=== PATIENT | female | born 1950 | race Caucasian/White ===

== ENCOUNTER 2016-08-23 06:11 | Day surgery (SDC) | payer OTHER ==
--- NOTE | ~2016-08-23 | EGD ---
EGD REPORT [facility] [address] [place] [id number] NAME: MIKALA BERTRAND : 54 STATUS : REG [facility] [place] PAT#: [id number] AGE: 66 ADM/REG DATE : 08/23/16 MR#: [id number] REPORT SERV DATE: 08/23/16 DICTATED BY: ASAEL FERREIRA DATE: 08/23/16 REPORT STATUS : Draft TRANSCRIBED BY: [facility] DATE: 08/23/16 Endoscopy Center Patient Name: Mikala Bertrand Date of : 1950 Attending MD: ASAEL FERREIRA MD Procedure Date No Time: 08/23/2016 Procedure: Upper GI endoscopy Indications: Epigastric abdominal pain, Eructation, Regurgitation, Frequent throat clearing Referring MD: KAROL ACOSTA MD, FAIZA HUBBARD III, MD Medicines: Propofol per Anesthesia Complications: No immediate complications. Estimated blood loss: None. Procedure: Pre-Anesthesia Assessment: - After reviewing the risks and benefits, the patient was deemed in satisfactory condition to undergo the procedure. - Prior to the procedure, a History and Physical was performed, and patient medications and allergies were reviewed. The patient's tolerance of previous anesthesia was also reviewed. The risks and benefits of the procedure and the sedation options and risks were discussed with the patient. All questions were answered, and informed consent was obtained. Prior Anticoagulants: The patient has taken no previous anticoagulant or antiplatelet agents. ASA Grade Assessment: II - A patient with mild systemic disease. After reviewing the risks and benefits, the patient was deemed in satisfactory condition to undergo the procedure. After obtaining informed consent, the endoscope was passed under direct vision. Throughout the procedure, the patient's blood pressure, pulse, and oxygen saturations were monitored continuously. The GIF [id number] was introduced through the mouth, and advanced to the jejunum. The upper GI endoscopy was accomplished without difficulty. The patient tolerated the procedure well. Findings: Diffuse mild erythema was found in the lower third of the esophagus. Biopsies were taken with a cold forceps for histology. Estimated blood loss: none. A non-obstructing Schatzki ring (acquired) was found at the gastroesophageal junction. The entire examined stomach and gastroesophageal junction (on retroflexion) were normal. EGD REPORT [address] [address] NAME: MIKALA BERTRAND : [birth year] STATUS : REG [facility] [place] PAT#: [id number] AGE: 66 ADM/REG DATE : 08/23/16 MR#: [id number] REPORT SERV DATE: 08/23/16 DICTATED BY: ASAEL FERREIRA DATE: 08/23/16 REPORT STATUS : Draft TRANSCRIBED BY: [employer] DATE: 08/23/16 The examined duodenum was normal. Biopsies were taken with a cold forceps for histology. Estimated blood loss: none. Impression: - Erythema in the lower third of the esophagus. Biopsied. - Non-obstructing Schatzki ring. - Normal stomach and gastroesophageal junction. - Normal examined duodenum. Biopsied. - Non-erosive esophageal reflux (NERD) disease present. - IBS-C. - Ventral hernia. Recommendation: - Discharge patient to home (ambulatory). - Decrease excess weight. - Return to previous diet. - Avoid eating within 4 hours of bedtime. - Continue present medications. - Increase Prilosec (omeprazole) to 40 mg twice daily before breakfast and supper for 1 month then decrease to once daily before meal. - Will consider trial of Carafate if no improvement. - Await pathology results. - Arrange F/U with Dr. Hubbard regarding ventral hernia. - Patient has a contact number available for emergencies. The signs and symptoms of potential delayed complications were discussed with the patient. Return to normal activities tomorrow. Written discharge instructions were provided to the patient. Procedure Code(s): --- Professional --- 20762, Esophagogastroduodenoscopy, flexible, transoral; with biopsy, single or multiple Diagnosis Code(s): --- Professional --- K22.9, Disease of esophagus, unspecified K22.2, Esophageal obstruction K21.9, Gastro-esophageal reflux disease without esophagitis R10.13, Epigastric pain R14.2, Eructation R11.10, Vomiting, unspecified CPT copyright 2013 [employer] [place] [employer]. All rights reserved. The codes documented in this report are preliminary and upon telegraph plant maintainer review may be revised to meet current compliance requirements. EGD REPORT [facility] [address] [place] [id number] NAME: MIKALA BERTRAND : [birth year] STATUS : REG [facility] [place] PAT#: [id number] AGE: 66 ADM/REG DATE : 08/23/16 MR#: [id number] REPORT SERV DATE: 08/23/16 DICTATED BY: ASAEL FERREIRA. DATE: 08/23/16 REPORT STATUS : Draft TRANSCRIBED BY: [employer] DATE: 08/23/16 ASAEL FERREIRA MD 08/23/2016 7:53 AM This report has been signed electronically. Number of Addenda: 0 Note Initiated On: 08/23/2016 7:32 AM Scope Withdrawal Time 0 hours 0 minutes 0 seconds [address] [id number]
[~2016-08-23 06:11] MED LIST: ACTIVELLA; ACTIVELLA PO; ADVAIR250 INH; ANOROELLIPTA INH; ASAB PO; ASACOL PO; ASAEC PO; BUPROPION; C5 PO; CALTRA600D PO; CENTRUM PO; CENTRUM TAB1 TAB PO; CO Q-10200 MG PO; COMBIVENT INH; COQ10100 MG OR; CYANO1000T PO; DSS PO; DURICEF PO; ESTRACE1 MG PO; ESTRADIOL1 MG PO; FERROUS SULF325 M1 PO; FISH-EPA1000 MG PO; FOSAMAX70 MG PO; KLOR-CON 1010 MEQ PO; MCZ125 PO; METHOC750B PO; MIRALAX POWDER1 PKT PO; MOBIC15 MG PO; MULTIVITAMI1 PO; OMEGA-3 KRILL PO; OS500+D PO; PARAFON FORTE PO; PARAFON FORTE500 MG OR; PCET PO; PERCOCET1 TA2 PO; PRILOSEC40 MG PO; PROAIR HFA INH; PROBIOTIC PO; PROVERA2.5 MG OR; PROVERA5 MG OR; PROVERA5 MG PO; SYMAX; TRAZ100 PO; TRAZ50 PO; ULTRACET PO; ULTRAM50 PO; VENTOLIN HFA INH; VIT C/RHIPS/ OR; WELLXL300 PO; ZOFRAN4 PO
[2016-09-21] MEDS ORDERED: ANOROELLIPTA INH (12:09)
[2016-09-21] MEDS ORDERED: VENTOLIN HFA INH (12:10)
[2016-09-21] MEDS ORDERED: PROVERA5 MG PO (12:12)
[2016-09-21] MEDS ORDERED: METHOC750B PO (12:15)
[2016-09-25] MEDS ORDERED: PERCOCET 7.5/321 TAB PO (09:28)
== END 2016-08-23 23:59 | disposition home or self-care (01) ==
LOC: DMU 06:11
PROVIDERS: Internal Medicine Gastroenterology
PROC: 0DB38ZX Excision of Lower Esophagus, Via Natural or Artificial Opening Endoscopic, Diagnostic (ICD-10-PCS; 2016-08-23)
PROC: 0DB98ZX Excision of Duodenum, Via Natural or Artificial Opening Endoscopic, Diagnostic (ICD-10-PCS; principal; 2016-08-23 07:30)
DX: K20.8 Other esophagitis (principal); K22.2 Esophageal obstruction; K21.9 Gastro-esophageal reflux disease without esophagitis; G43.909 Migraine, unspecified, not intractable, without status migrainosus; J45.909 Unspecified asthma, uncomplicated; F32.9 Major depressive disorder, single episode, unspecified; M19.90 Unspecified osteoarthritis, unspecified site; H91.90 Unspecified hearing loss, unspecified ear; H26.9 Unspecified cataract; Z87.891 Personal history of nicotine dependence; Z96.641 Presence of right artificial hip joint; Z90.89 Acquired absence of other organs; Z90.49 Acquired absence of other specified parts of digestive tract; Z98.51 Tubal ligation status; Z79.82 Long term (current) use of aspirin; Z79.818 Long term (current) use of other agents affecting estrogen receptors and estrogen levels; Z79.899 Other long term (current) drug therapy; Z98.890 Other specified postprocedural states
CPT/HCPCS: 88305